=== PATIENT | male | born 1960 | race Caucasian/White ===

== ENCOUNTER 2020-09-18 17:58 | Emergency (ER) | payer BC ==
[~2020-09-18 17:58] MED LIST: LEVAQUIN750 MG PO
[2020-09-18 19:29] LABS: HEMOGLOBIN 14.3 gm/dl (14.0-17.5); RED BLOOD COUNT 4.87 M/UL (4.20-5.50); WHITE BLOOD COUNT 11.4 K/UL (4.5-11.0)
[2020-09-18 19:57] LABS: BUN/CREATININE RATIO 20 (0-10)
== END 2020-09-18 21:46 | disposition left against medical advice (07) ==
LOC: ER1 17:58
PROVIDERS: Emergency Medicine
DX: R10.11 Right upper quadrant pain (principal); Z53.21 Procedure and treatment not carried out due to patient leaving prior to being seen by health care provider
CPT/HCPCS: 80053; 81001; 82550; 82553; 83605; 83690; 83874; 84484; 85025; 93005

== ENCOUNTER → 2020-10-19 | Outpatient (CLI) | payer BC | LOC: NM 09:00 | DX: K83.8 Other specified diseases of biliary tract (principal) | CPT/HCPCS: 78227; A9537; J2805 ==